=== PATIENT | female | born 1940 | race Caucasian/White ===

== ENCOUNTER → 2016-05-12 | Day surgery (SDC) | payer MEDICARE, OTHER ==
[2016-04-09 14:05] VITALS: BMI 28.3
[~2016-05-12] MED LIST: BSS 500 ml-Vancomycin 10 mg-Phenylephrine 1 mg Irrigation IR ONE; CHONDROITIN SULFATE 0.5 ML/PFS INTRAOC ONE; DEXAMETHASONE 4 MG/ML VIAL IV PRN; DIAZEPAM 5 MG TAB PO PRN; FENTANYL 100 MCG/2 ML VIAL ONE; Hyaluronate Sodium (Provisc) 5.5 mg/0.55 ml syringe INTRAOC ONE; LABETALOL 20 MG/4 ML SYRINGE IV PRN; MIDAZOLAM 2 MG/2 ML VIAL ONE; ONDANSETRON HCL 4 MG/2 ML VIAL IV PRN; PHENYLEPHRINE 2.5% OPHTH SOLN 2 ML BOT OP EYE ONE; SCOPOLAMINE TRANSDERMAL PATCH TOP ONE; TETRACAINE 0.5% 2 ML OPHTH SOLN OP EYE ONE; TETRACAINE 0.5% 2 ML OPHTH SOLN OP EYE PRN; TROPICAMIDE 1% OPHTH SOLN 2 ML BOTTLE OP EYE ONE; Vancomycin 10 MG, Phenylephrine 1,000 MCG in Balanced Salt Solution 500 ML IO ONE; hydrALAZINE 20 MG/ML VIAL IV PRN
--- NOTE | 2016-05-12 08:35 | SC.ANESEVA ---
Anesthesia Eval & Plan ([facility]) - Providers Stated Procedure: left eye cataract surgery Surgeon:: Kierra Mclain - Medications/Allergies Allergies: Allergies acetaminophen Allergy (Verified 05/12/16 07:52) Anxiety bacitracin Allergy (Verified 05/12/16 07:52) Rash-Generalized benzalkonium chloride Allergy (Verified 05/12/16 07:52) Rash-Generalized gramicidin D Allergy (Verified 05/12/16 07:52) Rash-Generalized penicillin G Allergy (Verified 05/12/16 07:52) Unknown polymyxin B Allergy (Verified 05/12/16 07:52) Rash-Generalized BACITRACIN ZINC Allergy (Uncoded 05/12/16 07:52) Rash-Generalized NEOMYCIN SULFATE Allergy (Uncoded 05/12/16 07:52) Rash-Generalized OXYCODONE HCL Allergy (Uncoded 05/12/16 07:52) Anxiety POLYMYXIN B SULFATE Allergy (Uncoded 05/12/16 07:52) Rash-Generalized Home Medications: Home Medication List Sulfasalazine [Sulfazine] 500 mg PO BID 05/11/16 [History] Current Medication List: Reviewed - Focused Physical Exam NPO since: Since after Midnight Mallampati: Class I Thyromental Distance: Greater than 3 Neck: Full Range of Motion Dental: Normal - no significant findings Cardiovascular/Chest: Normal (RRR no mumurs or rubs.) Respiratory: Lungs clear. negative: Wheezing Any problems with anesthesia, including nausea and vomiting?: No Any relatives with a history of Malignant Hyperthermia?: No Prone to Motion Sickness: No Other: Diagnoses AGE-RELATED NUCLEAR CATARACT, LEFT EYE (05/12/16) Allergies Allergy/AdvReac Type Severity Reaction Status Date / Time acetaminophen Allergy Anxiety Verified 05/12/16 07:52 bacitracin Allergy Rash-Genera Verified 05/12/16 07:52 lized benzalkonium chloride Allergy Rash-Genera Verified 05/12/16 07:52 lized gramicidin D Allergy Rash-Genera Verified 05/12/16 07:52 lized penicillin G Allergy Unknown Verified 05/12/16 07:52 polymyxin B Allergy Rash-Genera Verified 05/12/16 07:52 lized BACITRACIN ZINC Allergy Rash-Genera Uncoded 05/12/16 07:52 lized NEOMYCIN SULFATE Allergy Rash-Genera Uncoded 05/12/16 07:52 lized OXYCODONE HCL Allergy Anxiety Uncoded 05/12/16 07:52 POLYMYXIN B SULFATE Allergy Rash-Genera Uncoded 05/12/16 07:52 lized Home Medications Medication Instructions Recorded Last Taken Type Aspirin 81 mg PO DAILY 04/09/16 Unknown History Ergocalciferol (Vitamin D2) 50,000 unit PO WEEKLY 04/09/16 Unknown History [Vitamin D2 (ergocalciferol)] Ferrous Sulfate [Iron] 325 mg PO DAILY 04/09/16 Unknown History Lactobacillus Combo No.10 04/09/16 Unknown History [Probiotic] Multivitamin [Multivitamins] PO DAILY 04/09/16 Unknown History Nadolol 20 mg PO DAILY 04/09/16 Unknown History Omeprazole 40 mg PO DAILY 04/09/16 05/12/16 History Simvastatin 40 mg PO DAILY 04/09/16 Unknown History Citalopram Hydrobromide 20 mg PO DAILY 04/13/16 04/14/16 History [Citalopram HBr] Sulfasalazine [Sulfazine] 500 mg PO BID 05/11/16 Unknown History Height and Weight Patient's height 5 ft 1 in Patient's weight 68 kg Weight (Calculated Kilograms) 68.000 BMI 28.3 Vital Signs Temperature 97.1 F L 05/12/16 07:08 Pulse Rate 67 05/12/16 07:08 Respiratory Rate 16 05/12/16 07:08 Blood Pressure 134/76 05/12/16 07:08 Pulse Oxygen Saturation 98 05/12/16 07:08 - Anesthetic Plan Anesthesia Type: MAC ASA Class: 3 - Focused Review of Systems Cardiac History: Yes: Hx Abnormal Cholesterol/Hyperlipidemia HEENT: Yes: Hx Hearing Impairment, Cataracts, Other HEENT Problems Respiratory: Yes: Hx Asthma (In the past) Gastrointestinal: Yes: Hx Gastroesophageal Reflux Disease, Hx Gastrointestinal Disorders, Hx Diverticulosis, Hx Colonoscopy Blood/Autoimmune: No: Hx AIDS, Hx Hepatitis (type) Smoking Status: Former smoker Surgical History: Yes: Knee (ORTHO BILATERAL KNEE REPLACEMENT) Other Surgical History: septoplasty, esophageal varicies colon resection 09/12, exploratory lap x 5 bunionectomy x 2 right
[2016-05-12 08:42] VITALS: TEMP 97.4
[2016-05-12 08:55] VITALS: BP 120/50; PULSE 70
--- NOTE | 2016-05-12 09:00 | HIMOPRPT ---
DATE OF PROCEDURE: 05/12/16 PREOPERATIVE DIAGNOSIS: Cataract Left eye. POSTOPERATIVE DIAGNOSIS: Cataract Left eye. PROCEDURE: Cataract extraction by phacoemulsification of the Left eye SURGEON: Kierra Mclain MD. ANESTHESIA: IV Sedation/Topical. COMPLICATIONS: None. PRE-OPERATIVE EVALUATION: The patient has been examined and deemed medically stable for cataract extraction with no apparent need for inpatient observation; outpatient setting is appropriate. Patient appears to be oriented to time, place and person. PROCEDURE IN DETAIL: The correct eye confirmed by patient, doctor, staff and paperwork. The operative eye was then marked by the doctor in the preoperative area. Eye drops were instilled into the operative eye to dilate the pupil. The patient was transported to the operating room and was placed in the supine position. A time out was performed before the beginning of the procedure. The operative eye was prepped and draped in the usual sterile fashion for ophthalmic surgery, taking care to isolate the lashes from the surgical field. Topical anesthetic drops were instilled into the operative eye. A lid speculum was placed. Betadine 5% was instilled in the operative eye for antiseptic. Microscope was brought into place for use throughout the case. The eye was inspected. A paracentesis incision was created with a side port knife. The temporal limbal corneal incision was performed with a nancy blade. Viscoelastic was injected into the anterior chamber. Capsule forceps were used to create a capsulorhexis. Hydrodissection was performed with BSS. The nucleus was removed by phacoemulsification. Phaco time is noted below. The remaining cortical material was removed by I&A. The capsular bag was noted to be intact and distended with viscoelastic. The Intraocular lens was placed into the intact bag and centered without difficulty. The remaining viscoelastic was removed by I&A. Betadine 5% drops were placed to inspect wound and for antisepsis. Inspection revealed watertight wounds. The lid speculum was removed. Postoperative medications were instilled into the eye and a shield secured over the operative eye. IOL Type [id number] SN [id number] IOL Power 21.5 CDE 4.57 Discharge Summary: There were no complications and the patient was taken to the postoperative area in good condition. Postoperative instructions and outpatient follow up time were given.
--- NOTE | 2016-05-12 09:11 | SC.ANESPOS ---
Post-Anesthesia Note LOC: Fully Awake Post-Anesthesia Assessment: Awake, Returned to Baseline, Hemodynamically Stable , Pain Control Adequate Phase I & II Recovery Complete: Yes Apparent Anesthesia Complication: No : N - Vital Signs Blood Pressure: 120/50 Pulse: 70 Resp Rate: 16 O2 Sat: 100 Temp: 97.4 F
== END ==
LOC: CPSC 06:43
PROVIDERS: ATTEND Ophthalmology
PROC: 08RK3JZ Replacement of Left Lens with Synthetic Substitute, Percutaneous Approach (ICD-10-PCS; principal; 2016-05-12 08:00)
DX: H25.12 Age-related nuclear cataract, left eye (principal); I10 Essential (primary) hypertension; M19.90 Unspecified osteoarthritis, unspecified site; E78.5 Hyperlipidemia, unspecified; K21.9 Gastro-esophageal reflux disease without esophagitis; M81.0 Age-related osteoporosis without current pathological fracture; F32.9 Major depressive disorder, single episode, unspecified; Z87.891 Personal history of nicotine dependence; Z79.899 Other long term (current) drug therapy
CPT/HCPCS: 66984; A9270; J2250; J3010; V2632; J3490